=== PATIENT | female | born 1940 | race Caucasian/White ===

== ENCOUNTER 2019-09-04 11:00 | Outpatient (RCR) | payer SELFPAY | END 2019-10-04 00:01 | LOC: CR 11:00 | PROVIDERS: Family Provider Electrodiagnostic Medicine; Referring Provider Internal Medicine Cardiovascular Disease; Visit Provider Internal Medicine Cardiovascular Disease | DX: Z48.812 Encounter for surgical aftercare following surgery on the circulatory system (principal); Z95.1 Presence of aortocoronary bypass graft ==

== ENCOUNTER 2019-10-12 11:35 | Outpatient (RCR) | payer SELFPAY | END 2019-11-04 23:59 | disposition home or self-care (01) | LOC: CR 11:35 | PROVIDERS: Family Provider Electrodiagnostic Medicine; PCP Electrodiagnostic Medicine; Referring Provider Internal Medicine Cardiovascular Disease; Visit Provider Internal Medicine Cardiovascular Disease | DX: Z95.1 Presence of aortocoronary bypass graft (principal) ==

== ENCOUNTER 2019-10-13 09:15 | Outpatient (CLI) | payer MEDICARE, SELFPAY ==
--- NOTE | 2019-10-13 09:30 | XR_ITS ---
WS: [id number] LEFT SHOULDER: 3 VIEW(S) TECHNIQUE: Internal and external rotation with Y view. HISTORY: SHOULDER IMPINGEMENT SYNDROME, LEFT, SHOULDER PAIN COMPARISON: None available. Moderate to severe narrowing of the glenohumeral joint. Subchondral cystic changes in the glenoid. Gl enoid is mildly flattened and there is bone upon bone with the adjacent humeral head. Smaller hypertr ophic osteophytes are forming and involving the adjacent humeral head. Mild AC joint narrowing. Prior median sternotomy and CABG. Moderate atherosclerosis in the aorta. XR/XR shoulder LT min 2V* [id number] IMPRESSION: 1. Severe LEFT glenohumeral joint osteoarthritis. 2. Mild AC joint arthritis.
== END 2019-10-13 09:16 | disposition home or self-care (01) ==
LOC: WPI 09:21
PROVIDERS: Family Provider Electrodiagnostic Medicine; PCP Electrodiagnostic Medicine; Referring Provider Electrodiagnostic Medicine; Visit Provider Electrodiagnostic Medicine
DX: M75.42 Impingement syndrome of left shoulder (principal); M25.512 Pain in left shoulder; M19.012 Primary osteoarthritis, left shoulder
CPT/HCPCS: 73030

== ENCOUNTER 2019-11-07 13:39 | Outpatient (RCR) | payer SELFPAY | END 2019-12-03 23:59 | disposition home or self-care (01) | LOC: CR 13:39 | PROVIDERS: Family Provider Electrodiagnostic Medicine; PCP Electrodiagnostic Medicine; Referring Provider Internal Medicine Cardiovascular Disease; Visit Provider Internal Medicine Cardiovascular Disease | DX: Z95.1 Presence of aortocoronary bypass graft (principal) ==

== ENCOUNTER 2019-12-05 12:47 | Outpatient (RCR) | payer SELFPAY | END 2020-01-03 23:59 | disposition home or self-care (01) | LOC: CR 12:47 | PROVIDERS: Family Provider Electrodiagnostic Medicine; PCP Electrodiagnostic Medicine; Referring Provider Internal Medicine Cardiovascular Disease; Visit Provider Internal Medicine Cardiovascular Disease | DX: Z95.1 Presence of aortocoronary bypass graft (principal) ==

== ENCOUNTER 2020-02-21 09:23 | Outpatient (CLI) | payer MEDICARE, SELFPAY ==
--- NOTE | 2020-02-21 09:41 | MM_ITS ---
WS: [id number] BILATERAL SCREENING DIGITAL MAMMOGRAM WITH CAD HISTORY: SCREEN COMPARISON: 11/11/2018 09/03/2016 Bilateral CC and MLO views submitted. Computer aided detection analyzed. Breast composition: There are scattered areas of fibroglandular density. No suspicious masses, microc alcifications or architectural distortion. Benign calcifications in each breast. MM/[place] [id number] IMPRESSION: BI-RADS: 2-Benign FOLLOW UP: 1 Year Follow-up
== END 2020-02-21 09:24 | disposition home or self-care (01) ==
PROVIDERS: PCP Electrodiagnostic Medicine; Visit Provider Electrodiagnostic Medicine
DX: Z12.31 Encounter for screening mammogram for malignant neoplasm of breast (principal)
CPT/HCPCS: 77067

== ENCOUNTER 2020-03-13 14:15 | Outpatient (RCR) | payer SELFPAY | END 2020-04-03 23:59 | disposition home or self-care (01) | LOC: CR 14:15 | PROVIDERS: PCP Electrodiagnostic Medicine; Referring Provider Internal Medicine Cardiovascular Disease; Visit Provider Internal Medicine Cardiovascular Disease | DX: Z95.1 Presence of aortocoronary bypass graft (principal) ==

== ENCOUNTER 2020-04-04 | Outpatient (RCR) | payer SELFPAY | END 2020-05-02 23:00 | disposition home or self-care (01) | LOC: CR | PROVIDERS: PCP Electrodiagnostic Medicine; Referring Provider Internal Medicine Cardiovascular Disease; Visit Provider Internal Medicine Cardiovascular Disease | DX: Z95.1 Presence of aortocoronary bypass graft (principal) ==

== ENCOUNTER 2020-05-08 13:44 | Outpatient (RCR) | payer SELFPAY | END 2020-06-04 23:59 | disposition home or self-care (01) | LOC: CR 13:44 | PROVIDERS: PCP Electrodiagnostic Medicine; Referring Provider Internal Medicine Cardiovascular Disease; Visit Provider Internal Medicine Cardiovascular Disease | DX: Z95.1 Presence of aortocoronary bypass graft (principal) ==

== ENCOUNTER 2020-05-10 15:17 | Outpatient (CLI) | payer MEDICARE, SELFPAY ==
--- NOTE | 2020-05-10 15:45 | XR_ITS ---
WS: [id number] SCREENING DEXA SCAN [employer] CLINICAL INFORMATION: POST MENOPAUSAL STATUS COMPARISON: September 14, 2013 FINDINGS: Lumbar scoliosis convex left. The L1-L4 bone mineral density measures 1.496 g/cm2. This corresponds to a T score score of 2.6 and Z score of 4.2. Left femoral neck bone mineral density measures 0.907 g/cm2. This corresponds to a T score of -0.8 an d Z score of 1.0. Right femoral neck bone mineral density measures 0.896 g/cm2. This corresponds to a T score -0.9of an d Z score of 0.9. Mean femoral neck bone mineral density measures 0.901 g/cm2. This corresponds to a T score of -0.8 an d Z score of 1.0. 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 Patient's FRAX calculated 10 year probability for major osteoporotic fracture i s 12.5 % and osteoporotic hip fracture is 2.8%.
== END 2020-05-10 15:18 | disposition home or self-care (01) ==
LOC: RADWPI 15:22
PROVIDERS: PCP Electrodiagnostic Medicine; Visit Provider Electrodiagnostic Medicine
DX: Z78.0 Asymptomatic menopausal state (principal)
CPT/HCPCS: 77080

== ENCOUNTER 2020-07-06 10:37 | Outpatient (RCR) | payer SELFPAY | END 2020-08-04 23:59 | disposition home or self-care (01) | LOC: CR 10:37 | PROVIDERS: PCP Electrodiagnostic Medicine; Referring Provider Internal Medicine Cardiovascular Disease; Visit Provider Internal Medicine Cardiovascular Disease | DX: Z95.1 Presence of aortocoronary bypass graft (principal) ==

== ENCOUNTER 2020-08-14 10:47 | Outpatient (RCR) | payer SELFPAY | END 2020-09-03 23:59 | disposition home or self-care (01) | LOC: CR 10:47 | PROVIDERS: PCP Electrodiagnostic Medicine; Referring Provider Internal Medicine; Visit Provider Internal Medicine | DX: Z95.1 Presence of aortocoronary bypass graft (principal) ==

== ENCOUNTER 2020-09-06 10:32 | Outpatient (RCR) | payer SELFPAY | END 2020-10-04 23:59 | disposition home or self-care (01) | LOC: CR 10:32 | PROVIDERS: PCP Electrodiagnostic Medicine; Referring Provider Internal Medicine; Visit Provider Internal Medicine | DX: Z95.1 Presence of aortocoronary bypass graft (principal) ==

== ENCOUNTER 2020-10-08 12:34 | Outpatient (RCR) | payer SELFPAY | END 2020-11-04 23:59 | disposition home or self-care (01) | LOC: CR 12:34 | PROVIDERS: PCP Electrodiagnostic Medicine; Referring Provider Internal Medicine; Visit Provider Internal Medicine | DX: Z95.1 Presence of aortocoronary bypass graft (principal) ==

== ENCOUNTER 2020-11-06 10:24 | Outpatient (RCR) | payer SELFPAY | END 2020-12-02 23:59 | disposition home or self-care (01) | LOC: CR 10:24 | PROVIDERS: PCP Electrodiagnostic Medicine; Referring Provider Internal Medicine; Visit Provider Internal Medicine | DX: Z95.1 Presence of aortocoronary bypass graft (principal) ==

== ENCOUNTER 2020-12-03 09:03 | Outpatient (RCR) | payer SELFPAY | END 2021-01-02 23:59 | disposition home or self-care (01) | LOC: CR 09:03 | PROVIDERS: PCP Electrodiagnostic Medicine; Referring Provider Internal Medicine; Visit Provider Internal Medicine | DX: Z95.1 Presence of aortocoronary bypass graft (principal) ==

== ENCOUNTER 2021-01-03 14:02 | Outpatient (RCR) | payer SELFPAY | END 2021-02-01 23:59 | disposition home or self-care (01) | LOC: CR 14:02 | PROVIDERS: PCP Electrodiagnostic Medicine; Referring Provider Internal Medicine; Visit Provider Internal Medicine | DX: Z95.1 Presence of aortocoronary bypass graft (principal) ==

== ENCOUNTER 2021-02-04 09:49 | Outpatient (RCR) | payer SELFPAY | END 2021-03-04 23:59 | disposition home or self-care (01) | LOC: CR 09:49 | PROVIDERS: PCP Electrodiagnostic Medicine; Referring Provider Internal Medicine; Visit Provider Internal Medicine | DX: Z95.1 Presence of aortocoronary bypass graft (principal) ==

== ENCOUNTER 2021-03-05 13:41 | Outpatient (RCR) | payer SELFPAY | END 2021-04-03 23:59 | disposition home or self-care (01) | LOC: CR 13:41 | PROVIDERS: PCP Electrodiagnostic Medicine; Referring Provider Internal Medicine; Visit Provider Internal Medicine | DX: Z95.1 Presence of aortocoronary bypass graft (principal) ==

== ENCOUNTER 2021-04-11 13:39 | Outpatient (RCR) | payer SELFPAY | END 2021-05-04 23:59 | disposition home or self-care (01) | LOC: CR 13:39 | PROVIDERS: PCP Electrodiagnostic Medicine; Referring Provider Internal Medicine; Visit Provider Internal Medicine | DX: Z95.1 Presence of aortocoronary bypass graft (principal) ==

== ENCOUNTER 2021-05-09 14:09 | Outpatient (RCR) | payer SELFPAY | END 2021-06-04 23:59 | disposition home or self-care (01) | LOC: CR 14:09 | PROVIDERS: PCP Electrodiagnostic Medicine; Referring Provider Internal Medicine; Visit Provider Internal Medicine | DX: Z95.1 Presence of aortocoronary bypass graft (principal) ==

== ENCOUNTER 2021-07-05 09:18 | Outpatient (RCR) | payer SELFPAY | END 2021-08-04 23:59 | disposition home or self-care (01) | LOC: CR 09:18 | PROVIDERS: PCP Electrodiagnostic Medicine; Referring Provider Internal Medicine; Visit Provider Internal Medicine | DX: Z95.1 Presence of aortocoronary bypass graft (principal) ==

== ENCOUNTER 2021-08-02 09:57 | Outpatient (CLI) | payer MEDICARE, SELFPAY ==
--- NOTE | 2021-08-02 10:15 | USCV_ITS ---
Aarti Muse Age: 81 Gender: F : 1940 Exam Date: 08/02/2021 10:17 Ordering Phys: Hermilo Veloz M.D ([email or web address]) Technologist: Lizette Villa [place]am Location[place] [facility] [place]ication: MURMUR BP: 132 / 74 HR: 56 Rhythm: Sinus Technical Quality: Good MEASUREMENTS (Male / Female) Normal Values 2D ECHO LV Diastolic Diameter PLAX 3.2 cm 4.2 - 5.9 / 3.9 - 5.3 cm LV Systolic Diameter PLAX 2.1 cm IVS Diastolic Thickness 1.5 cm 0.6 - 1.0 / 0.6 - 0.9 cm IVS Systolic Thickness 1.6 cm LVPW Diastolic Thickness 1.4 cm 0.6 - 1.0 / 0.6 - 0.9 cm LVPW Systolic Thickness 1.9 cm RV Chamber Size 2.4 cm LVOT Diameter 2.0 cm LV Ejection Fraction 2D Teich 64.0 % LV Ejection Fraction MOD 2C 54.4 % LV Ejection Fraction 2C AL 55.7 % LA Diameter 3.2 cm LA Width 3.4 cm LA Height 4.8 cm RA Width 2.2 cm RA Height 3.9 cm Aorta at Sinotubular Diameter 2.4 cm DOPPLER AV Peak Velocity 115.0 cm/s LVOT Peak Velocity 73.0 cm/s AV Area Cont Eq vti 1.7 cm squared AV Area Cont Eq pk 2.0 cm squared MV Area PHT 6.3 cm squared Mitral E to A Ratio 1.6 MV E' Velocity 54.5 cm/s Mitral E to MV E' Ratio 9.5 Mitral E to LV E' Lateral Ratio 8.5 Mitral E to LV E' Septal Ratio 10.9 TR Peak Velocity 258.8 cm/s TR Peak Gradient 26.8 mmHg TV Peak E Velocity 61.0 cm/s PV Peak Velocity 51.0 cm/s RV Acceleration Time 0.1 s RV Ejection Time 0.3 s RV AcT/ET 0.3 FINDINGS Left Ventricle Normal left ventricular size. LV systolic function is normal with EF of 60-65%. No regional wall motion abnormalities. Moderate cnocentric left ventricular hypertrophy is seen. Normal diastolic filling pattern. Right Ventricle The right ventricle is normal in size and function. Right Atrium The right atrium is enlarged Left Atrium The left atrium is severely dilated Mitral Valve Structurally normal mitral valve without significant stenosis or prolapse. There is eccentric moderate mitral regurgitation. Aortic Valve Thickened aortic valve without significant stenosis. There is mild aortic regurgitation. Tricuspid Valve Structurally normal tricuspid valve without significant stenosis. Mild tricuspid regurgitation. RVSP is normal Pulmonic Valve Structurally normal pulmonic valve without significant stenosis. There is trace pulmonic regurgitation. Pericardium Normal pericardium without effusion. Aorta Normal ascending aorta dimension. CONCLUSIONS LV systolic function is normal with EF of 60 to 65%. Moderate left ventricular hypertrophy is seen. Diastolic function is normal. Eccentric moderate mitral regurgitation is noted. Severe left atrial enlargement is seen. Mild aortic regurgitation Mild tricuspid and trace pulmonic regurgitation seen. Compared to prior echocardiogram from 08/18/2017, patient now has moderate mitral regurgitation and mild aortic regurgitation Hermilo Veloz MD (Electronically Signed) Final Date: 10 August 2021 20:22 S
== END 2021-08-02 09:58 | disposition home or self-care (01) ==
LOC: RAD 09:59
PROVIDERS: PCP Electrodiagnostic Medicine; Visit Provider Internal Medicine
DX: R01.1 Cardiac murmur, unspecified (principal); I08.3 Combined rheumatic disorders of mitral, aortic and tricuspid valves
CPT/HCPCS: 93306

== ENCOUNTER 2021-08-05 13:14 | Outpatient (RCR) | payer SELFPAY | END 2021-09-03 23:59 | disposition home or self-care (01) | LOC: CR 13:14 | PROVIDERS: PCP Electrodiagnostic Medicine; Referring Provider Internal Medicine; Visit Provider Internal Medicine | DX: Z95.1 Presence of aortocoronary bypass graft (principal) ==

== ENCOUNTER 2021-09-04 10:10 | Outpatient (RCR) | payer SELFPAY | END 2021-10-04 23:59 | disposition home or self-care (01) | LOC: CR 10:10 | PROVIDERS: PCP Electrodiagnostic Medicine; Referring Provider Internal Medicine; Visit Provider Internal Medicine | DX: Z95.1 Presence of aortocoronary bypass graft (principal) ==

== ENCOUNTER 2021-10-07 08:55 | Outpatient (RCR) | payer SELFPAY | END 2021-11-04 23:59 | disposition home or self-care (01) | LOC: CR 08:55 | PROVIDERS: PCP Electrodiagnostic Medicine; Referring Provider Internal Medicine; Visit Provider Internal Medicine | DX: Z95.1 Presence of aortocoronary bypass graft (principal) ==

== ENCOUNTER 2021-11-05 08:24 | Outpatient (RCR) | payer SELFPAY | END 2021-12-02 23:59 | disposition home or self-care (01) | LOC: CR 08:24 | PROVIDERS: PCP Electrodiagnostic Medicine; Referring Provider Internal Medicine; Visit Provider Internal Medicine | DX: Z95.1 Presence of aortocoronary bypass graft (principal) ==

== ENCOUNTER 2021-12-03 11:51 | Outpatient (RCR) | payer SELFPAY | END 2022-01-02 23:59 | disposition home or self-care (01) | LOC: CR 11:51 | PROVIDERS: PCP Electrodiagnostic Medicine; Referring Provider Internal Medicine; Visit Provider Internal Medicine | DX: Z95.1 Presence of aortocoronary bypass graft (principal) ==

== ENCOUNTER → 2021-12-26 12:43 | Outpatient (BNVA) | payer MEDICARE, SELFPAY | PROVIDERS: PCP Electrodiagnostic Medicine; Visit Provider Internal Medicine | DX: I25.10 Atherosclerotic heart disease of native coronary artery without angina pectoris (principal); I10 Essential (primary) hypertension; E78.5 Hyperlipidemia, unspecified | CPT/HCPCS: 99214 ==

== ENCOUNTER 2022-01-03 12:54 | Outpatient (RCR) | payer SELFPAY | END 2022-02-01 23:59 | disposition home or self-care (01) | LOC: CR 12:54 | PROVIDERS: PCP Electrodiagnostic Medicine; Referring Provider Internal Medicine; Visit Provider Internal Medicine | DX: Z95.1 Presence of aortocoronary bypass graft (principal) ==

== ENCOUNTER 2022-02-03 12:30 | Outpatient (RCR) | payer SELFPAY | END 2022-03-04 23:59 | disposition home or self-care (01) | LOC: CR 12:30 | PROVIDERS: PCP Electrodiagnostic Medicine; Referring Provider Internal Medicine; Visit Provider Internal Medicine | DX: Z95.1 Presence of aortocoronary bypass graft (principal) ==

== ENCOUNTER 2022-03-05 09:37 | Outpatient (RCR) | payer SELFPAY | END 2022-04-03 23:59 | disposition home or self-care (01) | LOC: CR 09:37 | PROVIDERS: PCP Electrodiagnostic Medicine; Referring Provider Internal Medicine; Visit Provider Internal Medicine | DX: Z95.1 Presence of aortocoronary bypass graft (principal) ==

== ENCOUNTER 2022-04-04 11:00 | Outpatient (RCR) | payer SELFPAY | END 2022-05-04 23:59 | disposition home or self-care (01) | LOC: CR 11:00 | PROVIDERS: PCP Electrodiagnostic Medicine; Referring Provider Internal Medicine; Visit Provider Internal Medicine | DX: Z95.1 Presence of aortocoronary bypass graft (principal) ==

== ENCOUNTER 2022-05-05 08:40 | Outpatient (RCR) | payer SELFPAY | END 2022-06-04 23:59 | disposition home or self-care (01) | LOC: CR 08:40 | PROVIDERS: PCP Electrodiagnostic Medicine; Referring Provider Internal Medicine; Visit Provider Internal Medicine | DX: Z95.1 Presence of aortocoronary bypass graft (principal) ==

== ENCOUNTER 2022-06-05 13:03 | Outpatient (RCR) | payer SELFPAY | END 2022-07-04 23:59 | disposition home or self-care (01) | LOC: CR 13:03 | PROVIDERS: PCP Electrodiagnostic Medicine; Referring Provider Internal Medicine; Visit Provider Internal Medicine | DX: Z95.1 Presence of aortocoronary bypass graft (principal) ==

== ENCOUNTER → 2022-06-26 12:36 | Outpatient (BNVA) | payer MEDICARE, SELFPAY | PROVIDERS: PCP Electrodiagnostic Medicine; Visit Provider Internal Medicine | DX: R06.00 Dyspnea, unspecified (principal); I10 Essential (primary) hypertension; I25.10 Atherosclerotic heart disease of native coronary artery without angina pectoris; E78.5 Hyperlipidemia, unspecified; Z95.1 Presence of aortocoronary bypass graft; R01.1 Cardiac murmur, unspecified; Z87.891 Personal history of nicotine dependence | CPT/HCPCS: 99214 ==

== ENCOUNTER 2022-08-05 10:08 | Outpatient (RCR) | payer SELFPAY | END 2022-09-03 23:59 | disposition home or self-care (01) | LOC: CR 10:08 | PROVIDERS: PCP Electrodiagnostic Medicine; Referring Provider Internal Medicine; Visit Provider Internal Medicine | DX: Z95.1 Presence of aortocoronary bypass graft (principal) ==

== ENCOUNTER 2022-09-04 14:54 | Outpatient (RCR) | payer SELFPAY | END 2022-10-04 23:59 | disposition home or self-care (01) | LOC: CR 14:54 | PROVIDERS: PCP Electrodiagnostic Medicine; Referring Provider Internal Medicine; Visit Provider Internal Medicine | DX: Z95.1 Presence of aortocoronary bypass graft (principal) ==

== ENCOUNTER 2022-10-08 12:29 | Outpatient (RCR) | payer SELFPAY | END 2022-11-04 23:59 | disposition home or self-care (01) | LOC: CR 12:29 | PROVIDERS: PCP Electrodiagnostic Medicine; Referring Provider Internal Medicine; Visit Provider Internal Medicine | DX: Z95.1 Presence of aortocoronary bypass graft (principal) ==

== ENCOUNTER 2022-11-05 13:34 | Outpatient (RCR) | payer SELFPAY | END 2022-12-02 23:59 | disposition home or self-care (01) | LOC: CR 13:34 | PROVIDERS: PCP Electrodiagnostic Medicine; Referring Provider Internal Medicine; Visit Provider Internal Medicine | DX: Z95.1 Presence of aortocoronary bypass graft (principal) ==

== ENCOUNTER 2022-12-03 14:18 | Outpatient (RCR) | payer SELFPAY | END 2023-01-02 23:59 | disposition home or self-care (01) | LOC: CR 14:18 | PROVIDERS: PCP Electrodiagnostic Medicine; Referring Provider Internal Medicine; Visit Provider Internal Medicine | DX: Z95.1 Presence of aortocoronary bypass graft (principal) ==

== ENCOUNTER → 2022-12-25 15:22 | Outpatient (BNVA) | payer MEDICARE, SELFPAY | PROVIDERS: PCP Electrodiagnostic Medicine; Visit Provider Internal Medicine | DX: I25.10 Atherosclerotic heart disease of native coronary artery without angina pectoris (principal); R06.02 Shortness of breath; I10 Essential (primary) hypertension; E78.5 Hyperlipidemia, unspecified; Z95.1 Presence of aortocoronary bypass graft; R01.1 Cardiac murmur, unspecified; Z87.891 Personal history of nicotine dependence; Z79.82 Long term (current) use of aspirin | CPT/HCPCS: 99214 ==

== ENCOUNTER 2023-01-05 12:02 | Outpatient (RCR) | payer SELFPAY | END 2023-02-01 23:59 | disposition home or self-care (01) | LOC: CR 12:02 | PROVIDERS: PCP Electrodiagnostic Medicine; Referring Provider Internal Medicine; Visit Provider Internal Medicine | DX: Z95.1 Presence of aortocoronary bypass graft (principal) ==

== ENCOUNTER 2023-01-15 07:31 | Outpatient (CLI) | payer MEDICARE, SELFPAY ==
--- NOTE | 2023-01-15 07:45 | USCV_ITS ---
Aarti Muse Age: 82 Gender: F : 1940 Exam Date: 01/15/2023 08:01 Ordering Phys: Hermilo Veloz M.D ([email or web address]) Technologist: CT Exam Location: [facility] [place]: sob BP: 158 / 66 HR: 43 Rhythm: Sinus Technical Quality: Adequate MEASUREMENTS (Male / Female) Normal Values 2D ECHO LV Diastolic Diameter PLAX 3.5 cm 4.2 - 5.9 / 3.9 - 5.3 cm LV Systolic Diameter PLAX 1.7 cm IVS Diastolic Thickness 1.8 cm 0.6 - 1.0 / 0.6 - 0.9 cm IVS Systolic Thickness 2.1 cm LVPW Diastolic Thickness 1.7 cm 0.6 - 1.0 / 0.6 - 0.9 cm LVPW Systolic Thickness 1.6 cm LVOT Diameter 2.0 cm LV Ejection Fraction 2D Teich 84.5 % LV Ejection Fraction MOD 2C 76.4 % LV Ejection Fraction 2C AL 75.5 % LA Diameter 3.9 cm Aorta at Sinotubular Diameter 2.4 cm M-MODE Aortic Annulus Diameter 2.8 cm LA Ao Ratio MM 1.4 MV E Point Septal Separation 0.3 cm DOPPLER AV Peak Velocity 143.0 cm/s LVOT Peak Velocity 80.0 cm/s AV Area Cont Eq vti 1.4 cm squared AV Area Cont Eq pk 1.7 cm squared MV Peak Velocity 114.0 cm/s MV Area PHT 5.0 cm squared Mitral E to A Ratio 1.2 MV E' Velocity 63.0 cm/s Mitral E to MV E' Ratio 10.0 Mitral E to LV E' Lateral Ratio 9.3 Mitral E to LV E' Septal Ratio 10.8 TR Peak Velocity 270.7 cm/s TR Peak Gradient 29.3 mmHg Right Atrial Pressure 3.0 mmHg Pulmonary Artery Systolic Pressu 32.3 mmHg FINDINGS Left Ventricle Left ventricle is normal in size. LV systolic function is normal with EF of 60 to 65%. No regional wall motion abnormalities are seen. Moderate to severe left ventricular hypertrophy is seen. Right Ventricle Normal in size. Right Atrium Normal in size. Left Atrium Dilated Mitral Valve Mitral valve is thickened. Moderate mitral regurgitation. Aortic Valve Structurally normal aortic valve. No significant aortic stenosis. Tricuspid Valve Mild tricuspid regurgitation. RVSP is 40 to 45 mmHg. This is consistent with mild pulmonary hypertension. Pulmonic Valve Not well-visualized.Mild pulmonic regurgitation. Pericardium Normal Aorta Normal in size. IVC Appears to be normal CONCLUSIONS LV systolic function is normal with EF of 60 to 65%. Moderate to severe left ventricular hypertrophy Moderate mitral regurgitation Mild tricuspid regurgitation Mild pulmonary hypertension Mild pulmonic regurgitation Compared to prior echocardiogram from 2020, no significant changes are seen. Hermilo Veloz MD (Electronically Signed) Final Date: 29 January 2023 11:56 S
== END 2023-01-15 07:32 | disposition home or self-care (01) ==
LOC: RAD 07:35
PROVIDERS: PCP Electrodiagnostic Medicine; Visit Provider Internal Medicine
DX: I25.10 Atherosclerotic heart disease of native coronary artery without angina pectoris (principal); I10 Essential (primary) hypertension; I48.91 Unspecified atrial fibrillation; E03.9 Hypothyroidism, unspecified; R06.02 Shortness of breath
CPT/HCPCS: 93306

== ENCOUNTER 2023-02-02 14:16 | Outpatient (RCR) | payer SELFPAY | END 2023-03-04 23:59 | disposition home or self-care (01) | LOC: CR 14:16 | PROVIDERS: PCP Electrodiagnostic Medicine; Referring Provider Internal Medicine; Visit Provider Internal Medicine | DX: Z95.1 Presence of aortocoronary bypass graft (principal) ==

== ENCOUNTER 2023-03-06 11:47 | Outpatient (RCR) | payer SELFPAY | END 2023-04-03 23:59 | disposition home or self-care (01) | LOC: CR 11:47 | PROVIDERS: PCP Electrodiagnostic Medicine; Referring Provider Internal Medicine; Visit Provider Internal Medicine | DX: Z95.1 Presence of aortocoronary bypass graft (principal) ==

== ENCOUNTER 2023-04-09 08:05 | Outpatient (RCR) | payer SELFPAY | END 2023-05-04 23:59 | disposition home or self-care (01) | LOC: CR 08:05 | PROVIDERS: PCP Electrodiagnostic Medicine; Referring Provider Internal Medicine; Visit Provider Internal Medicine | DX: Z95.1 Presence of aortocoronary bypass graft (principal) ==

== ENCOUNTER 2023-05-05 13:30 | Outpatient (RCR) | payer SELFPAY | END 2023-06-04 23:59 | disposition home or self-care (01) | LOC: CR 13:30 | PROVIDERS: PCP Electrodiagnostic Medicine; Referring Provider Internal Medicine; Visit Provider Internal Medicine | DX: Z95.1 Presence of aortocoronary bypass graft (principal) ==

== ENCOUNTER 2023-06-05 10:12 | Outpatient (RCR) | payer SELFPAY | END 2023-07-04 23:59 | disposition home or self-care (01) | LOC: CR 10:12 | PROVIDERS: PCP Electrodiagnostic Medicine; Referring Provider Internal Medicine; Visit Provider Internal Medicine | DX: Z95.1 Presence of aortocoronary bypass graft (principal) ==

== ENCOUNTER → 2023-07-02 14:56 | Outpatient (BNVA) | payer MEDICARE, SELFPAY | PROVIDERS: PCP Electrodiagnostic Medicine; Visit Provider Internal Medicine | DX: I25.10 Atherosclerotic heart disease of native coronary artery without angina pectoris (principal); E78.5 Hyperlipidemia, unspecified; I10 Essential (primary) hypertension; Z95.1 Presence of aortocoronary bypass graft; R01.1 Cardiac murmur, unspecified; Z87.891 Personal history of nicotine dependence | CPT/HCPCS: 99214 ==

== ENCOUNTER 2023-07-07 10:01 | Outpatient (RCR) | payer SELFPAY | END 2023-08-04 23:59 | disposition home or self-care (01) | LOC: CR 10:01 | PROVIDERS: PCP Electrodiagnostic Medicine; Referring Provider Internal Medicine; Visit Provider Internal Medicine | DX: Z95.1 Presence of aortocoronary bypass graft (principal) ==

== ENCOUNTER 2023-07-08 08:11 | Outpatient (CLI) | payer MEDICARE, SELFPAY ==
[2023-07-08 08:52] LABS: Cholesterol 225 mg/dL (0-200); HDL Cholesterol 50 mg/dL (60-100); LDL Cholesterol Calculated 142 mg/dL (50-129); LDL HDL Ratio 2.84 RATIO (0.00-3.22); Triglycerides 165 mg/dL (0-150)
== END 2023-07-08 08:12 | disposition home or self-care (01) ==
LOC: LAB 08:14
PROVIDERS: PCP Electrodiagnostic Medicine; Visit Provider Internal Medicine
DX: E78.5 Hyperlipidemia, unspecified (principal)
CPT/HCPCS: 36415; 80061

== ENCOUNTER → 2023-07-16 14:18 | Outpatient (BNVA) | payer MEDICARE, SELFPAY | PROVIDERS: PCP Electrodiagnostic Medicine; Visit Provider Internal Medicine | DX: I10 Essential (primary) hypertension (principal); I25.10 Atherosclerotic heart disease of native coronary artery without angina pectoris; E78.5 Hyperlipidemia, unspecified; Z95.1 Presence of aortocoronary bypass graft; R01.1 Cardiac murmur, unspecified; Z87.891 Personal history of nicotine dependence | CPT/HCPCS: 99214 ==

== ENCOUNTER 2023-08-05 09:59 | Outpatient (RCR) | payer SELFPAY | END 2023-09-03 23:59 | disposition home or self-care (01) | LOC: CR 09:59 | PROVIDERS: PCP Electrodiagnostic Medicine; Referring Provider Internal Medicine; Visit Provider Internal Medicine | DX: Z95.1 Presence of aortocoronary bypass graft (principal) ==

== ENCOUNTER 2023-09-04 10:18 | Outpatient (RCR) | payer SELFPAY | END 2023-10-04 23:59 | disposition home or self-care (01) | LOC: CR 10:18 | PROVIDERS: PCP Electrodiagnostic Medicine; Referring Provider Internal Medicine; Visit Provider Internal Medicine | DX: Z95.1 Presence of aortocoronary bypass graft (principal) ==

== ENCOUNTER 2023-10-06 10:49 | Outpatient (RCR) | payer SELFPAY | END 2023-11-04 23:59 | disposition home or self-care (01) | LOC: CR 10:49 | PROVIDERS: PCP Electrodiagnostic Medicine; Referring Provider Internal Medicine; Visit Provider Internal Medicine | DX: Z95.1 Presence of aortocoronary bypass graft (principal) ==

== ENCOUNTER 2023-11-11 13:06 | Outpatient (RCR) | payer SELFPAY | END 2023-12-03 23:59 | disposition home or self-care (01) | LOC: CR 13:06 | PROVIDERS: PCP Electrodiagnostic Medicine; Referring Provider Internal Medicine; Visit Provider Internal Medicine | DX: Z95.1 Presence of aortocoronary bypass graft (principal) ==

== ENCOUNTER → 2023-12-31 15:10 | Outpatient (BNVA) | payer MEDICARE, SELFPAY | PROVIDERS: PCP Electrodiagnostic Medicine; Visit Provider Internal Medicine | DX: I10 Essential (primary) hypertension (principal); I25.10 Atherosclerotic heart disease of native coronary artery without angina pectoris; E78.5 Hyperlipidemia, unspecified; Z95.1 Presence of aortocoronary bypass graft; R01.1 Cardiac murmur, unspecified; Z87.891 Personal history of nicotine dependence | CPT/HCPCS: 99214 ==

== ENCOUNTER 2024-06-07 07:51 | Outpatient (CLI) | payer MEDICARE, SELFPAY ==
--- NOTE | 2024-06-07 08:00 | USCV_ITS ---
Aarti Muse Age: 83 Gender: F : 1940 Exam Date: 06/07/2024 08:23 Ordering Phys: Hermilo Veloz M.D ([email or web address]) Technologist: ITZEL Exam Location: [facility] – [place] Indication: murmur BP: 166 / 82 HR: 56 Rhythm: Sinus Technical Quality: Adequate MEASUREMENTS (Male / Female) Normal Values 2D ECHO LVOT Diameter 2.0 cm LV Ejection Fraction MOD 4C 63.1 % LV Ejection Fraction MOD 2C 67.0 % LV Ejection Fraction 2C AL 68.1 % LA Diameter 4.5 cm RA Systolic Volume 4C AL 29.0 ml RA Systolic Volume 4C MOD 28.1 ml LA Sys Volume AL 59.2 cm cubed LA Sys Volume Index AL 29.6 cm cubed/m squared Aorta at Sinotubular Diameter 2.4 cm M-MODE LA Ao Ratio MM 1.5 AV Cusp Separation MM 2.4 cm DOPPLER AV Peak Velocity 125.0 cm/s LVOT Peak Velocity 76.0 cm/s AV Area Cont Eq vti 2.0 cm squared AV Area Cont Eq pk 2.0 cm squared MV Peak Velocity 93.0 cm/s MV Area PHT 4.4 cm squared Mitral E to A Ratio 1.2 TR Peak Velocity 205.0 cm/s TR Peak Gradient 16.8 mmHg TV Peak E Velocity 55.0 cm/s Right Atrial Pressure 3.0 mmHg Pulmonary Artery Systolic Pressu 19.8 mmHg PV Peak Velocity 78.5 cm/s FINDINGS Left Ventricle Left ventricle is normal in size. LV systolic function is normal with EF of 55 to 60%. No regional wall motion abnormalities are seen. Left ventricular hypertrophy Right Ventricle The right ventricle is normal in size and function. Right Atrium The right atrium is normal in size. Left Atrium The left atrium is normal in size. Mitral Valve Structurally normal mitral valve. Mild to moderate mitral regurgitation. Aortic Valve Structurally normal aortic valve . No significant stenosis or regurgitation. Tricuspid Valve Mild tricuspid regurgitation. Pulmonary artery systolic pressure is normal. Pulmonic Valve Mild pulmonic regurgitation. Pericardium Normal pericardium without effusion. Aorta Normal ascending aorta dimension. IVC Not well visualized. CONCLUSIONS LV systolic function is normal with EF of 55-60% Mild to moderate mitral regurgitation Mild tricuspid regurgitation Mild pulmonic regurgitation Compared to prior echocardiogram from 2022, no significant changes are seen Hermilo Veloz MD (Electronically Signed) Final Date: 08 June 2024 09:11 S
== END 2024-06-07 07:52 | disposition home or self-care (01) ==
PROVIDERS: PCP Electrodiagnostic Medicine; Visit Provider Internal Medicine
DX: I34.0 Nonrheumatic mitral (valve) insufficiency (principal); I51.7 Cardiomegaly; R07.9 Chest pain, unspecified
CPT/HCPCS: 93306

== ENCOUNTER 2024-06-16 14:00 | Outpatient (RCR) | payer SELFPAY | END 2024-07-04 23:59 | disposition home or self-care (01) | LOC: CR 14:00 | PROVIDERS: PCP Electrodiagnostic Medicine; Referring Provider Internal Medicine; Visit Provider Electrodiagnostic Medicine | DX: I50.9 Heart failure, unspecified (principal) ==

== ENCOUNTER → 2024-07-04 15:13 | Outpatient (BNVA) | payer MEDICARE, SELFPAY | PROVIDERS: PCP Electrodiagnostic Medicine; Visit Provider Internal Medicine | DX: I25.10 Atherosclerotic heart disease of native coronary artery without angina pectoris (principal); I10 Essential (primary) hypertension; E78.5 Hyperlipidemia, unspecified; Z95.1 Presence of aortocoronary bypass graft; R01.1 Cardiac murmur, unspecified | CPT/HCPCS: 99214 ==

== ENCOUNTER 2024-07-20 12:58 | Outpatient (RCR) | payer SELFPAY | END 2024-08-04 23:59 | disposition home or self-care (01) | LOC: CR 12:58 | PROVIDERS: PCP Electrodiagnostic Medicine; Referring Provider Internal Medicine; Visit Provider Electrodiagnostic Medicine | DX: I50.9 Heart failure, unspecified (principal) ==

== ENCOUNTER 2024-08-05 14:03 | Outpatient (RCR) | payer SELFPAY | END 2024-09-03 23:59 | disposition home or self-care (01) | LOC: CR 14:03 | PROVIDERS: PCP Electrodiagnostic Medicine; Referring Provider Internal Medicine; Visit Provider Electrodiagnostic Medicine | DX: Z95.1 Presence of aortocoronary bypass graft (principal) ==

== ENCOUNTER 2024-09-07 07:35 | Outpatient (RCR) | payer SELFPAY | END 2024-10-04 23:59 | disposition home or self-care (01) | LOC: CR 07:35 | PROVIDERS: PCP Electrodiagnostic Medicine; Referring Provider Internal Medicine; Visit Provider Electrodiagnostic Medicine | DX: I50.9 Heart failure, unspecified (principal) ==

== ENCOUNTER 2024-10-05 10:37 | Outpatient (RCR) | payer SELFPAY | END 2024-11-04 23:59 | disposition home or self-care (01) | LOC: CR 10:37 | PROVIDERS: PCP Electrodiagnostic Medicine; Referring Provider Internal Medicine; Visit Provider Electrodiagnostic Medicine | DX: I50.9 Heart failure, unspecified (principal) ==

== ENCOUNTER 2024-11-07 15:41 | Outpatient (RCR) | payer SELFPAY | END 2024-12-02 23:59 | disposition home or self-care (01) | LOC: CR 15:41 | PROVIDERS: PCP Electrodiagnostic Medicine; Referring Provider Internal Medicine; Visit Provider Electrodiagnostic Medicine | DX: I50.9 Heart failure, unspecified (principal) ==

== ENCOUNTER 2024-12-03 12:48 | Outpatient (RCR) | payer SELFPAY | END 2025-01-02 23:59 | disposition home or self-care (01) | LOC: CR 12:48 | PROVIDERS: PCP Electrodiagnostic Medicine; Referring Provider Internal Medicine; Visit Provider Electrodiagnostic Medicine | DX: I50.9 Heart failure, unspecified (principal) ==

== ENCOUNTER → 2025-01-02 10:00 | Outpatient (BNVA) | payer MEDICARE, SELFPAY | PROVIDERS: PCP Electrodiagnostic Medicine; Visit Provider Nurse Practitioner Family | DX: I25.10 Atherosclerotic heart disease of native coronary artery without angina pectoris (principal); I10 Essential (primary) hypertension; E78.5 Hyperlipidemia, unspecified | CPT/HCPCS: 99214 ==

== ENCOUNTER 2025-01-03 14:50 | Outpatient (RCR) | payer SELFPAY | END 2025-02-01 23:59 | disposition home or self-care (01) | LOC: CR 14:50 | PROVIDERS: PCP Electrodiagnostic Medicine; Referring Provider Internal Medicine; Visit Provider Electrodiagnostic Medicine | DX: I50.9 Heart failure, unspecified (principal) ==

== ENCOUNTER 2025-02-02 10:16 | Outpatient (RCR) | payer SELFPAY | END 2025-03-04 23:59 | disposition home or self-care (01) | LOC: CR 10:16 | PROVIDERS: PCP Electrodiagnostic Medicine; Referring Provider Internal Medicine; Visit Provider Electrodiagnostic Medicine | DX: I50.9 Heart failure, unspecified (principal) ==

== ENCOUNTER 2025-03-08 09:12 | Outpatient (RCR) | payer SELFPAY | END 2025-04-03 23:59 | disposition home or self-care (01) | LOC: CR 09:12 | PROVIDERS: PCP Electrodiagnostic Medicine; Referring Provider Internal Medicine; Visit Provider Electrodiagnostic Medicine | DX: I50.9 Heart failure, unspecified (principal) ==

== ENCOUNTER 2025-04-04 11:13 | Outpatient (RCR) | payer SELFPAY | END 2025-05-04 23:59 | disposition home or self-care (01) | LOC: CR 11:13 | PROVIDERS: PCP Electrodiagnostic Medicine; Referring Provider Internal Medicine; Visit Provider Electrodiagnostic Medicine | DX: I50.9 Heart failure, unspecified (principal) ==

== ENCOUNTER 2025-05-05 13:41 | Outpatient (RCR) | payer SELFPAY | END 2025-06-04 23:59 | disposition home or self-care (01) | LOC: CR 13:41 | PROVIDERS: PCP Electrodiagnostic Medicine; Referring Provider Internal Medicine; Visit Provider Electrodiagnostic Medicine | DX: I50.9 Heart failure, unspecified (principal) ==

== ENCOUNTER 2025-06-06 13:48 | Outpatient (RCR) | payer SELFPAY | END 2025-07-04 23:59 | disposition home or self-care (01) | LOC: CR 13:48 | PROVIDERS: PCP Electrodiagnostic Medicine; Referring Provider Internal Medicine; Visit Provider Electrodiagnostic Medicine | DX: I50.9 Heart failure, unspecified (principal) ==

== ENCOUNTER → 2025-07-04 15:11 | Outpatient (BNVA) | payer MEDICARE, SELFPAY | PROVIDERS: PCP Electrodiagnostic Medicine; Visit Provider Internal Medicine | DX: I25.10 Atherosclerotic heart disease of native coronary artery without angina pectoris (principal); Z95.1 Presence of aortocoronary bypass graft; I10 Essential (primary) hypertension; E78.5 Hyperlipidemia, unspecified | CPT/HCPCS: 99214 ==

== ENCOUNTER 2025-07-05 09:48 | Outpatient (RCR) | payer SELFPAY | END 2025-08-04 23:59 | disposition home or self-care (01) | LOC: CR 09:48 | PROVIDERS: PCP Electrodiagnostic Medicine; Referring Provider Internal Medicine; Visit Provider Electrodiagnostic Medicine | DX: I50.9 Heart failure, unspecified (principal) ==

== ENCOUNTER 2025-08-05 13:00 | Outpatient (RCR) | payer SELFPAY | END 2025-09-03 23:59 | disposition home or self-care (01) | LOC: CR 13:00 | PROVIDERS: PCP Electrodiagnostic Medicine; Referring Provider Internal Medicine; Visit Provider Electrodiagnostic Medicine | DX: I50.9 Heart failure, unspecified (principal) ==

== ENCOUNTER 2025-09-04 09:26 | Outpatient (RCR) | payer SELFPAY | END 2025-10-04 23:59 | disposition home or self-care (01) | LOC: CR 09:26 | PROVIDERS: PCP Electrodiagnostic Medicine; Referring Provider Internal Medicine; Visit Provider Electrodiagnostic Medicine | DX: I50.9 Heart failure, unspecified (principal) ==